=== PATIENT | male | born 1935 | race Caucasian/White ===

== ENCOUNTER 2018-09-16 08:21 | Day surgery (SDC) | payer MEDICARE, BC ==
[~2018-09-16] VITALS: Ht 188 cm; Wt 79.1 kg
--- NOTE | ~2018-09-16 | OP ---
PATIENT NAME: PRINCE WALSH MEDICAL RECORD: [id number] :37 [facility] DATE: SURGEON: KENROY PALM DO DATE OF OPERATION: 09/16/2018 PROCEDURE: EGD with biopsies. INDICATIONS FOR PROCEDURE: Heartburn, nausea and vomiting, altered bowel function. SCOPE: Netsize video gastroscope. MEDICATIONS: Propofol 180 mg IV per anesthesia. ESTIMATED BLOOD LOSS: Minimal. COMPLICATIONS: None. FINDINGS AND DESCRIPTION OF PROCEDURE: Informed consent was given. The patient was made comfortable with the above medication. After reaching an adequate level of sedation by slow IV push, the patient was placed on his left side. The endoscope was advanced under direct visualization through the mouth to the third portion of the duodenum. The upper, middle, and lower thirds of the esophagus appeared normal. The GE junction appeared normal as well. There were no obvious breaks in the Z-line consistent with reflux esophagitis. The endoscope was advanced beyond the GE junction into the stomach and retroflexed to view the cardia and fundus, which appeared normal. The body of the stomach appeared normal as well. As the endoscope was advanced into the antrum and prepyloric region, there was some erythema and granularity in a patchy distribution consistent with possible gastritis. Random cold forceps biopsies were taken throughout the stomach to submit for histopathology and to rule out the presence of H. pylori. The endoscope was advanced beyond the pylorus into the duodenum. The entire examined duodenum appeared normal. Multiple cold forceps biopsies were taken to submit for histology based on the change in bowel habits. The endoscope was withdrawn from the patient. The patient tolerated the procedure well and there were no complications. IMPRESSION: 1. Gastritis characterized by erythema and granularity involving the antrum and prepyloric region. 2. Otherwise, normal esophagogastroduodenoscopy. Biopsies were taken from the small intestine and the stomach. PLAN AND RECOMMENDATIONS: 1. Discharge home when recovery parameters are met. 2. Follow up biopsy specimen results. 3. We will provide a 30-day trial of PPI therapy to see if this improves symptoms. 4. GERD diet and reflux precautions. 5. Proceed with colonoscopy as scheduled. 6. Consider gastric emptying scan and further workup of symptoms. 7. Further recommendations to follow findings at time of colonoscopy. 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
[2018-09-16 08:47] LABS: BASOPHILS 1.1 % (0-2); EOSINOPHILS 2.4 % (0-7); HEMATOCRIT 27.6 % (42.0-54.0); IMMATURE GRANULOCYTES 0.2 % (0-5); LYMPHOCYTES 25.1 % (15-50); MCH 30.4 pg (26.0-34.0); MCHC 32.6 g/dL (31.0-37.0); MCV 93.2 fL (80.0-100.0); MEAN PLATELET VOLUME 11.3 fL (7.4-10.4); MONOCYTES 12.5 % (2-11); NEUTROPHILS 58.7 % (40-80); PLATELET COUNT 145 10x3/uL (130-400); RBC 2.96 10x6/uL (4.20-6.10); RDW 13.2 % (11.5-14.5); WBC 4.6 10x3/uL (4.8-10.8)
[2018-09-16 08:54] LABS: ANION GAP 11.2 mmol/L (8-16); CALCIUM 8.3 mg/dL (8.5-10.1); CARBON DIOXIDE 33.1 mmol/L (21.0-32.0); CREATININE - SERUM 2.5 mg/dL (0.6-1.3); POTASSIUM - SERUM 4.3 mmol/L (3.5-5.1)
[2018-09-16] MEDS ORDERED: COREG12.5 MG PO (09:03)
[2018-09-16] MEDS ORDERED: SYNTHROID50 MCG PO (09:04)
[2018-09-16] MEDS ORDERED: VITAMIN D3400 UNI1 PO (09:04)
[2018-09-16] MEDS ORDERED: METOLAZONE2.5 MG PO (09:05)
[2018-09-16] MEDS ORDERED: LONITEN10 MG PO (09:06)
[2018-09-16] MEDS ORDERED: REQUIP0.5 MG PO (09:06)
[2018-09-16] MEDS ORDERED: VITAMIN B-625 MG PO (09:07)
[2018-09-16] MEDS ORDERED: ZOCOR40 MG PO (09:07)
[2018-09-16] MEDS ORDERED: VITAMIN B-12500 MCG PO (09:08)
[2018-09-16 09:15] VITALS: BP 179/83; Ht 188 cm; Wt 79.1 kg
== END 2018-09-16 11:50 | disposition home or self-care (01) ==
LOC: D.OPS 08:21
PROVIDERS: Anesthesiology
DX: K29.70 Gastritis, unspecified, without bleeding (principal); R19.4 Change in bowel habit; R11.0 Nausea; Z01.812 Encounter for preprocedural laboratory examination

== ENCOUNTER 2018-09-21 08:21 | Day surgery (SDC) | payer MEDICARE, BC ==
[~2018-09-21] VITALS: Ht 188 cm; Wt 78.2 kg
--- NOTE | ~2018-09-21 | OP ---
PATIENT NAME: PRINCE WALSH MEDICAL RECORD: [id number] :37 LOCATION:[facility] ADMISSION DATE: SURGEON: KENROY PALM DO DATE OF OPERATION: 09/21/2018 PROCEDURE: Colonoscopy with endoscopic mucosal resection and polypectomy. INDICATIONS FOR PROCEDURE: Lower abdominal pain, altered bowel function. SCOPE: Olympus video pediatric colonoscope. MEDICATIONS: Propofol 150 mg IV per anesthesia. WITHDRAWAL TIME: 16 minutes. ESTIMATED BLOOD LOSS: Minimal. COMPLICATIONS: None. FINDINGS: Informed consent was given. The patient was made comfortable with the above medication. After reaching an adequate level of sedation by slow IV push, the patient was placed on his left side. A digital rectal examination was performed and was normal. The endoscope was then advanced under direct visualization through the rectum to the cecum and into the terminal ileum approximately 20 cm. The endoscope was slowly withdrawn and mucosa was carefully examined. The prep quality was good. There was evidence of [id number]-[id number] diverticulosis involving the entire colon. There was no evidence of diverticulitis. The terminal ileum appeared normal. Mucosa throughout the colon appeared normal. There were 2 polyps visualized on today's examination. The first was located in the cecum. It was a benign appearing sessile polyp, which measured approximately 7-8 mm in diameter. It was removed using endoscopic mucosal resection technique with a saline pillow and a hot snare polypectomy. The polyp was completely removed and retrieved. The second polyp was located in the rectum. It was a benign-appearing sessile polyp, which measured approximately 2-3 mm in diameter. It was removed using hot forceps in 1 piece and completely retrieved. Random biopsies were taken throughout the entire colon to rule out microscopic colitis. Retroflexion was performed in the rectum with a normal appearing rectal wall. The endoscope was then withdrawn from the patient. The patient tolerated the procedure well and there were no complications. IMPRESSION: 1. Moderate to severe diverticulosis of the entire colon. 2. Cecal polyp and rectal polyp removed using a combination of EMR technique and hot forceps. PLAN AND RECOMMENDATIONS: 1. Discharge home when recovery parameters are met. 2. Follow up biopsy specimen results. 3. High fiber diet. 4. Continue current medications. 5. Consider a trial of cholestyramine 4 grams b.i.d. and Lomotil p.r.n. when the patient is planning to leave the house for a period of time. 6. Consider video capsule endoscopy to further evaluate the small intestine. 7. No further colonoscopies are necessary based on the patient's age, unless OPERATIVE REPORT [id number] PRINCE WALSH symptoms warrant evaluation. 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
[~2018-09-21 08:21] MED LIST: COREG12.5 MG PO; LONITEN10 MG PO; METOLAZONE2.5 MG PO; REQUIP0.5 MG PO; SYNTHROID50 MCG PO; VITAMIN B-12500 MCG PO; VITAMIN B-625 MG PO; VITAMIN D3400 UNI1 PO; ZOCOR40 MG PO
[2018-09-21 09:07] VITALS: BP 198/84; Ht 188 cm; Wt 78.2 kg
[2018-09-21 09:09] LABS: BASOPHILS 1.8 % (0-2); EOSINOPHILS 2.5 % (0-7); HEMATOCRIT 28.3 % (42.0-54.0); HEMOGLOBIN 9.2 g/dL (13.5-17.5); LYMPHOCYTES 25.6 % (15-50); MCH 30.1 pg (26.0-34.0); MCHC 32.5 g/dL (31.0-37.0); MCV 92.5 fL (80.0-100.0); MEAN PLATELET VOLUME 11.4 fL (7.4-10.4); MONOCYTES 13.7 % (2-11); NEUTROPHILS 56.4 % (40-80); PLATELET COUNT 152 10x3/uL (130-400); RBC 3.06 10x6/uL (4.20-6.10); RDW 12.6 % (11.5-14.5); WBC 4.9 10x3/uL (4.8-10.8)
[2018-09-21 09:16] LABS: ANION GAP 9.9 mmol/L (8-16); CALCIUM 9.1 mg/dL (8.5-10.1); CREATININE - SERUM 2.1 mg/dL (0.6-1.3); POTASSIUM - SERUM 3.9 mmol/L (3.5-5.1)
== END 2018-09-21 11:22 | disposition home or self-care (01) ==
LOC: D.OPS 08:21
PROVIDERS: Anesthesiology
DX: K57.30 Diverticulosis of large intestine without perforation or abscess without bleeding (principal); D12.0 Benign neoplasm of cecum; K63.5 Polyp of colon; Z01.812 Encounter for preprocedural laboratory examination

== ENCOUNTER 2019-12-09 05:30 | Day surgery (SDC) | payer MEDICARE, BC ==
[~2019-12-09] VITALS: Ht 188 cm; Wt 86.8 kg
[2019-12-09 06:17] LABS: BASOPHILS 0.9 % (0-2); EOSINOPHILS 1.7 % (0-7); HEMATOCRIT 28.7 % (42.0-54.0); IMMATURE GRANULOCYTES 0.2 % (0-5); LYMPHOCYTES 14.8 % (15-50); MCH 27.4 pg (26.0-34.0); MCHC 31.4 g/dL (31.0-37.0); MCV 87.2 fL (80.0-100.0); MEAN PLATELET VOLUME 9.8 fL (7.4-10.4); MONOCYTES 14.2 % (2-11); NEUTROPHILS 68.2 % (40-80); PLATELET COUNT 129 10x3/uL (130-400); RBC 3.29 10x6/uL (4.20-6.10); RDW 16.4 % (11.5-14.5); WBC 5.4 10x3/uL (4.8-10.8)
[2019-12-09 06:26] LABS: ANION GAP 14.6 mmol/L (8-16); CALCIUM 8.4 mg/dL (8.5-10.1); CARBON DIOXIDE 20.6 mmol/L (21.0-32.0); POTASSIUM - SERUM 5.2 mmol/L (3.5-5.1)
[2019-12-09] MEDS ORDERED: LASIX80 MG PO (06:57)
[2019-12-09 07:00] VITALS: BP 157/65; Ht 188 cm; Wt 86.8 kg
--- NOTE | 2019-12-09 15:44 | OP ---
PATIENT NAME: PRINCE WALSH MEDICAL RECORD: [id number] :37 LOCATION:[facility] ADMISSION DATE: SURGEON: KENROY PALM DO DATE OF OPERATION: 12/09/2019 PROCEDURE: EGD / Enteroscopy with gold probe cautery and biopsies. INDICATIONS FOR PROCEDURE: Anemia with possible acute blood loss. SCOPE: Olympus video pediatric colonoscope. MEDICATIONS: Propofol 220 mg IV per anesthesia. ESTIMATED BLOOD LOSS: Minimal. COMPLICATIONS: None. FINDINGS: Informed consent was given. The patient was made comfortable with the above medication. After reaching an adequate level of sedation by slow IV push, the patient was placed on his left side. The endoscope was advanced under direct visualization through the mouth to the fourth portion of the duodenum/jejunum, where a previous small intestinal bowel resection was performed. The esophagus appeared normal down to the GE junction. At the GE junction, there were minor changes consistent with LA class A reflux-induced esophagitis. The endoscope was advanced beyond the GE junction into the stomach and retroflexed to view the cardia and fundus, which appeared normal. Throughout the body of the stomach as well as the antrum and prepyloric regions, there was some erythema and granularity consistent with mild gastritis. There were a few scattered erosions, which looked consistent with pill-induced erosions. From these erosions, there were small amounts of hematin consistent with possible oozing of blood. The sites were all easily washed without continued bleeding. It is also possible that these are just gastric contents that are sticking to these slightly inflamed erosive sites. Cold forceps biopsies were taken from the antrum and incisura to submit for histopathology and to rule out the presence of H. pylori. The endoscope was advanced beyond the pylorus into the duodenum down to the fourth portion/jejunum. There was a single AVM in the third portion of the duodenum, which was cauterized using a gold probe. The AVM was small, measuring approximately 2 mm in diameter. It was not bleeding and is likely not contributing to the patient's anemia. A small bowel anastomosis was identified. The site appeared normal without ulcers or erosions. The endoscope was withdrawn from the patient. The patient tolerated the procedure well, and there were no complications. IMPRESSION: 1. LA class A reflux-induced esophagitis. 2. Mild chronic gastritis with some scattered erosions likely related to medications. 3. 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 PLAN AND RECOMMENDATIONS: 1. Discharge home when recovery parameters are met. 2. Follow up biopsy specimen results. 3. GERD diet and reflux precautions. 4. Continue current medications including omeprazole 40 mg daily. OPERATIVE REPORT [id number] PRINCE WALSH 5. Follow up with hematology as scheduled. 6. If GI bleeding is further suspected, can consider a small bowel capsule endoscopy and if there are positive findings on that study for AVMs or bleeding, the patient may need balloon enteroscopy. This would require a referral out as we do not have that capability at [facility] or [facility]. 7. GI is available as needed moving forward for any evaluations or interventions requested. TRANSINT:[id number] Voice Confirmation ID: [id number] DOCUMENT ID: [id number] KENROY PALM DO at 1544 CC: [id number] DICTATION DATE: 12/09/1945 MAIL ORDER BILLER: 12/09/19 0805 [facility] 12/09/19 [facility] [address] [place] [address]
== END 2019-12-09 09:05 | disposition home or self-care (01) ==
LOC: D.OPS 05:30
PROVIDERS: Anesthesiology; ATTEND Internal Medicine Gastroenterology
DX: D64.9 Anemia, unspecified (principal); R12 Heartburn; R19.4 Change in bowel habit